=== PATIENT | male | born 1995 | race Caucasian/White ===

== ENCOUNTER 2022-03-29 15:06 | Emergency (ER) | payer MEDICARE, MEDICAID, SELFPAY ==
[2022-03-29 15:07] VITALS: BP 128/94; PULSE 74; RESP 16; TEMP 37.2; O2SAT 99; BMI 25.8
--- NOTE | 2022-03-29 15:33 | EDS_ITS ---
HPI History of Present Illness Chief Complaint: Upper Extremity Injury Informant: patient and parent Narrative Narrative: Patient was trying to fix a windshield at 3 AM. It was already broken. He slipped and his right dominant hand hit said broken windshield. Alexi mayfield is not up-to-date. He has abrasion laceration mostly over the fourth MCP joint. Some slight abrasions near it. No bleeding. No sign of infection. PFSH PFSH Medical History no medical history Home Medications omeprazole 20 mg PO DAILY #30 capsule 11/04/17 [Rx Last Taken Unknown] ondansetron 4 mg PO Q8H PRN PRN #10 tab 11/04/17 [Rx Last Taken Unknown] cephalexin 500 mg PO Q6 #40 cap 03/29/22 [Rx Last Taken Unknown] Allergy/AdvReac Type Severity Reaction Status Date / Time divalproex sodium Allergy Unknown Verified 11/04/17 21:27 [From Depakote] haloperidol [From Haldol] Allergy MY LEGS Verified 11/04/17 21:26 QUIT WORKING haloperidol lactate Allergy MY LEGS Verified 11/04/17 21:26 [From Haldol] QUIT WORKING Social History Smoking Status: Current every day smoker tobacco type: cigarettes ROS ROS ED Constitutional Constitutional ED: Denies chills or fever(s) Integumentary Reports other Details: See history of present illness Neurologic Neurologic: Denies paresthesias or weakness Hematologic/Lymphatic Hematologic/Lymphatic: Denies easy bleeding or easy bruising EXAM Physical Exam Const Vital Signs: 03/29/22 15:07 Temperature 98.9 F Temperature Source Temporal Pulse Rate 74 Respiratory Rate 16 Blood Pressure 128/94 H Blood Pressure Mean 105 Pulse Ox 99 Oxygen Delivery Method Room Air Positive well nourished and well developed; Negative for unkempt General Appearance ED: well developed; Negative for unkempt HEENT normocephalic Eyes EOMs intact bilaterally Resp normal respiratory effort Extremity Extremity Narrative: Patient has slight stellate type laceration over the dorsal aspect of his right hand MCP joints #4. This really does not open up. There is no visible tendon. There are some very small punctate abrasions near it. No notable swelling. No decrease in tendon function numbness or tingling. Capillary refill is normal. No deformity. He has excellent full range of motion. Neuro no sensory deficits noted Sensorium / Orientation: alert Sensory Exam: No sensory level loss detected Motor Exam: strength 5/5 throughout Psych Appearance: Negative for unkempt Skin Skin Narrative: See above. Trauma: abrasion and laceration MDM MDM MDM Narrative Medical decision making narrative: Three-view x-ray of patient's right hand reviewed by me does not show any fracture. On one of the 3 films I see a submillimeter particle of density between fourth and fifth distal metacarpal. This is too small to find. I do not want open up the lacerations to look for the small piece. I will cover him with antibiotics. We explained the need for follow-up and recheck. If he develops redness, swelling, pain with motion, fevers, red streak up the hand or any other symptoms he needs to return here in the meantime. Discharge Plan Triage Chief Complaint: Upper Extremity Injury ED Provider: Gerhard Elliott Dx/Rx/DC Orders Clinical Impression: Laceration of right hand with delay in treatment, Foreign body in hand Instructions: ED Foreign Body Soft Tissue, ED Laceration, Old: Not Sutured Prescriptions: New cephalexin [cephalexin] 500 MG capsule 500 mg PO Q6 Qty: 40 RF: 0 No Action omeprazole 20 MG capsule 20 mg PO DAILY Qty: 30 RF: 0 ondansetron 4 MG tablet 4 mg PO Q8H PRN PRN (Reason: Nausea) Qty: 10 RF: 0 Primary Care Provider: Care Physician,No Primary Referrals: Charla Garcia MD [STAFF PHYSICIAN] - 3-5 Days if not improving NOT,DEFINED [NON-STAFF] - Disposition Disposition: Home, Self Care
--- NOTE | 2022-03-29 15:37 | RAD_ITS ---
STUDY: X-RAY - RIGHT HAND REASON FOR EXAM: Male, 26 years old. Pain after trauma TECHNIQUE: 3 view(s) of the hand. COMPARISON: None. FINDINGS: Please see the impression. RAD/Hand Min 3 Views IMPRESSION: No acute fracture or dislocation in the right hand. No radiopaque foreign body Electronically Signed: Maxwell Escobar MD at 16:10 EDT ,
[2022-03-29] MEDS: Diphth,Pertuss(Acell),Tet Vac 0.5 ML Vial IM (15:46)
[2022-03-29] MEDS: Cephalexin 250 MG Capsule 500 MG PO (16:19)
[2022-03-29 16:21] VITALS: BP 128/94; PULSE 74; RESP 18
== END 2022-03-29 16:23 | disposition home or self-care (01) ==
PROVIDERS: Emergency Provider Emergency Medicine; Visit Provider Emergency Medicine
DX: S61.421A Laceration with foreign body of right hand, initial encounter (principal); F17.210 Nicotine dependence, cigarettes, uncomplicated; W25.XXXA Contact with sharp glass, initial encounter
CPT/HCPCS: 73130; 90715; 96372; 99283